=== PATIENT | female | born 1985 | race Caucasian/White ===

== ENCOUNTER 2021-07-02 08:00 | Inpatient (IN) | payer BC, OTHER ==
[2021-07-02 09:56] VITALS: BMI 30.9
[2021-07-02] MEDS ORDERED: CITRIC ACID/SODIUM CITRATE 30 ML UNIT-DOSE CUP PO ONE (10:00)
[2021-07-02] MEDS: ELECTROLYTE-148 SOLN 1,000 ML IV SCH ×2 (10:01→10:47)
[2021-07-02] MEDS ORDERED: OXYTOCIN 20 UNITS in 0.9% NS 40 UNIT/2,000 ML INFUS.BAG IV ONE (11:23)
[2021-07-02] MEDS ORDERED: ONDANSETRON 4 MG/2 ML VIAL ONE (11:26)
[2021-07-02] MEDS ORDERED: ceFAZolin SODIUM 1 GM VIAL ONE (11:26)
[2021-07-02] MEDS ORDERED: morphine SULFATE/PF 1 MG/2 ML (2cc Syringe - QUVA) ONE (11:26)
[2021-07-02] MEDS ORDERED: DEXAMETHASONE SOD PHOSPHATE 4 MG/1 ML VIAL ONE (11:26)
[2021-07-02] MEDS ORDERED: OXYTOCIN 10 UNIT/ML 10ML MDV ONE (12:41)
[2021-07-02] MEDS ORDERED: MIDAZOLAM HCL 2 MG/2 ML SINGLE DOSE VIAL ONE (12:48)
[2021-07-02] MEDS: OXYTOCIN 20 UNITS in 0.9% NS 20 UNIT/1,000 ML INFUS.BAG IV SCH ×2 (12:50→14:03)
[2021-07-02] MEDS ORDERED: METHYLERGONOVINE MALEATE 0.2 MG/1 ML AMP IM PRN (13:24)
[2021-07-02] MEDS ORDERED: SENNOSIDES/DOCUSATE COMBO (SENNA PLUS) TABLET (UD) PO PRN (13:24)
[2021-07-02] MEDS ORDERED: ACETAMINOPHEN 1000 MG/100 ML VIAL (NON FORMULARY) IVPB PRN (13:24)
[2021-07-02] MEDS ORDERED: IBUPROFEN 800 MG/8 ML IJ IVPB PRN (13:24)
[2021-07-02] MEDS ORDERED: ONDANSETRON 4 MG/2 ML VIAL IVPB PRN (13:24)
[2021-07-03] MEDS: oxyCODONE HCL 5 MG TABLET PO PRN ×3 (02:38→20:36)
[2021-07-03] MEDS: SIMETHICONE 80 MG TAB.CHEW (FP) PO PRN ×4 (02:39→20:38)
[2021-07-03] MEDS: PRENATAL VITAMINS W/ FOLIC ACID TABLET (FP) PO SCH (09:26)
[2021-07-03 09:53] LABS: BASO % 0.3 % (0-2.0); EOS % 0.3 % (0-4.5); HEMOGLOBIN 9.9 GM/dL (10.7-15.3); LYMPH % 15.2 % (8-40); MCH 28.5 pg (25.7-33.7); MEAN CELL VOLUME 83.9 fl (80-96); MEAN PLT VOLUME 9.3 fl (7.5-11.1); MONO % 7.3 % (3.8-10.2); NEUT % 76.9 % (42.8-82.8); PLATELET COUNT 151 10^3/uL (134-434); RBC 3.46 M/mm3 (3.60-5.2); RDW 16.1 % (11.6-15.6); WHITE BLOOD COUNT 9.4 K/mm3 (4.0-10.0)
[2021-07-03] MEDS: IBUPROFEN 600 MG TABLET (FP) PO PRN ×2 (12:00→16:31)
[2021-07-03] MEDS ORDERED: ACETAMINOPHEN 325 MG TABLET (FP) PO PRN (13:24)
[2021-07-03] MEDS ORDERED: BISACODYL 10 MG SUPP.RECT RC PRN (13:25)
[2021-07-04] MEDS ORDERED: IBUPROFEN 600 MG TABLET (FP) PO PRN (05:42)
[2021-07-04] MEDS: SIMETHICONE 80 MG TAB.CHEW (FP) PO PRN (08:37)
[2021-07-04] MEDS: PRENATAL VITAMINS W/ FOLIC ACID TABLET (FP) PO SCH (10:02)
[2021-07-04 11:36] VITALS: BP 110/71; PULSE 81; TEMP 98.2
== END 2021-07-04 15:25 | disposition home or self-care (01) | DRG 788 ==
LOC: JLDR 09:10 → J3W 14:50
PROVIDERS: ADMIT Specialist; ATTEND Specialist
PROC: 10D00Z1 Extraction of Products of Conception, Low, Open Approach (ICD-10-PCS; principal; 2021-07-02)
DX: O82 Encounter for cesarean delivery without indication (principal); Z87.59 Personal history of other complications of pregnancy, childbirth and the puerperium; Z3A.39 39 weeks gestation of pregnancy; Z37.0 Single live birth
CPT/HCPCS: 36415; 85025; 86850; 86900; 86901; J0131